=== PATIENT | female | born 1945 | race Caucasian/White ===

== ENCOUNTER 2019-11-06 06:08 | Day surgery (SDC) | payer OTHER ==
[~2019-11-06] VITALS: Ht 160 cm; Wt 74.6 kg
[~2019-11-06 06:08] MED LIST: ASPI325 PO; FISH OIL 1,0001 EAC1 PO; Flovent 110 MCG12 GM; LEVSOD50 PO; PANT20 PO; PROAIR DIGIHAL90 MCG; Vitamin B Comple1 EA PO
--- NOTE | 2019-11-06 08:43 | NUR ---
11/06/19 0843 Octavio Harkins LATE ENTRY: RN UNABLE TO LOG-INTO COMPUTER. LATE ENTRY FOR CHARTING. PT WAS ALERT, ORIENTED. DENIES PAIN. PT LAUGHING, SMILING. PT STATES SHE WAS READY TO GO HOME AROUND 8AM. PT STATED UNDERSTANDING WITH DISCHARGE INSTRUCTIONS.
== END 2019-11-06 08:00 | disposition home or self-care (01) ==
LOC: ORSCSDS 06:08
PROVIDERS: Ophthalmology
PROC: 08RJ3JZ Replacement of Right Lens with Synthetic Substitute, Percutaneous Approach (ICD-10-PCS; principal; 2019-11-06 07:30)
DX: H25.11 Age-related nuclear cataract, right eye (principal); E03.9 Hypothyroidism, unspecified; Z79.899 Other long term (current) drug therapy
CPT/HCPCS: J2001; J2250; J3010; J3301; J7040; V2632

== ENCOUNTER 2020-01-08 08:28 | Day surgery (SDC) | payer OTHER ==
[~2020-01-08] VITALS: Ht 154.9 cm; Wt 71.4 kg
--- NOTE | 2020-01-08 09:20 | NUR ---
01/08/20 0920 DIANA MOY NOTED SORES TO LEFT ARM
--- NOTE | 2020-01-08 10:46 | NUR ---
01/08/20 1046 Denise Casas PT SITTING COMFORTABLY IN CHAIR. TOLERATING PO, NO COMPLATINS OF PAIN OR NAUSEA. VITAL SIGNS STABLE. AWAITING RIDE HOME.
== END 2020-01-08 10:46 | disposition home or self-care (01) ==
LOC: ORSCSDS 08:28
PROVIDERS: Ophthalmology
PROC: 08RK3JZ Replacement of Left Lens with Synthetic Substitute, Percutaneous Approach (ICD-10-PCS; principal; 2020-01-08 10:00)
DX: H25.12 Age-related nuclear cataract, left eye (principal); J44.9 Chronic obstructive pulmonary disease, unspecified; J45.909 Unspecified asthma, uncomplicated; E03.9 Hypothyroidism, unspecified; Z79.899 Other long term (current) drug therapy
CPT/HCPCS: J2001; J2250; J3010; J3301; J7040; J7120; V2632

== ENCOUNTER 2023-06-02 08:46 | Day surgery (SDC) | payer OTHER ==
[~2023-06-02] VITALS: Ht 152.4 cm; Wt 67.7 kg
[2023-06-02] MEDS ORDERED: ALBUTEROL0.63 MG/3 (09:12)
[2023-06-02] MEDS ORDERED: ERGO400 (09:13)
[2023-06-02] MEDS ORDERED: Diprolene 0.05%15 GM (09:13)
[2023-06-02] MEDS ORDERED: ZINC15 (09:14)
[2023-06-02] MEDS ORDERED: MAGCHL64ER (09:14)
[2023-06-02] MEDS ORDERED: MELATONIN5 M1 (09:14)
[2023-06-02 10:08] VITALS: BP 111/81
== END 2023-06-02 10:10 | disposition home or self-care (01) ==
LOC: ORSCSDS 08:46
PROVIDERS: Surgery
PROC: 0DJD8ZZ Inspection of Lower Intestinal Tract, Via Natural or Artificial Opening Endoscopic (ICD-10-PCS; principal; 2023-06-02 10:30)
DX: Z12.11 Encounter for screening for malignant neoplasm of colon (principal); J45.909 Unspecified asthma, uncomplicated; Z79.899 Other long term (current) drug therapy
CPT/HCPCS: J2704; J7120